=== PATIENT | female | born 1965 | race Caucasian/White ===

== ENCOUNTER 2017-01-15 06:15 | Emergency (ER) | payer OTHER ==
[~2017-01-15] VITALS: Ht 152.4 cm; Wt 59.7 kg
[2017-01-15 06:20] VITALS: Ht 152.4 cm; Wt 59.7 kg
[2017-01-15 06:42] LABS: URINE APPEARANCE TURBID (CLEAR); URINE BILIRUBIN NEG (NEG); URINE COLOR YELLOW; URINE NITRITE NEG (NEG); URINE PH 6.5 (4.5-7.5); URINE SPECIFIC GRAVITY 1.007 (1.000-1.030); UROBILINOGEN NEG (NEG); ZZUR CULT IF INDIC CLEAN CATCH YES
[2017-01-15 06:44] LABS: MANUAL MICROSCOPIC REQUIRED? NO; REVIEW REQ? NO
[2017-01-15] MEDS ORDERED: NITROFURANTOIN MONOHYDRATE 100 MG CAP PO STA (06:58)
[2017-01-15] MEDS ORDERED: NITR-5 PO (07:28)
--- NOTE | 2017-01-15 07:31 | EMERGENCY ROOM VISIT NOTE ---
History Report prepared by Jaquelineibpia: Francois Jimenez Under the Supervision of: Dr. Ashlie Mendenhall M.D. First contact with patient: 06:36 Chief Complaint: URINARY SYMPTOMS Stated Complaint: UTI Nursing Triage Summary: experiencing, frequency, burning and small amounts of hematuria since 299. History of Present Illness The patient is a 51 year old female who presents to the Emergency Room with complaints of persistent urinary symptoms since 0 this morning. The patient' s symptoms include urinary urgency, frequency, dysuria, and hematuria. Her symptoms are consistent with her recurrent UTIs. The patient usually takes Macrobid for her UTIs. Source of History: patient Onset: 299 this morning Position: other (urinary) Quality: other (UTI symptoms) Timing: other (persistent) Associated Symptoms: + urinary symptoms (burning, frequency, urgency, hematuria) Review of Systems See HPI for pertinent positives & negatives. A total of 10 systems reviewed and were otherwise negative. Past Medical & Surgical Medical Problems: (1) Delivery outcome of single liveborn infant Family History No pertinent family history Social History Smoking Status: Never Smoker Occupation Status: employed Current/Historical Medications Scheduled Nitrofurantoin Monohyd Macrocr (Macrobid), 100 MG PO BID Allergies Coded Allergies: Sulfa Drugs (Verified Allergy, 11/20/09) Uncoded Allergies: N (Allergy, Unknown, 11/28/02) NONE (Allergy, Unknown, 11/28/02) SEASONAL (Allergy, Unknown, 11/28/02) SULFA (Allergy, Unknown, 11/28/02) Physical Exam Vital Signs Date Time Temp Pulse Resp B/P Pulse Ox O2 Delivery O2 Flow Rate FiO2 01/15/17 07:47 37.0 82 18 139/87 99 01/15/17 07:04 37.0 92 18 139/87 98 Room Air 01/15/17 06:20 36.4 81 18 138/76 98 Room Air Medical Decision & Procedures Laboratory Results Test 01/15/17 06:25 Urine Color YELLOW Urine Appearance TURBID (CLEAR) Urine pH 6.5 (4.5-7.5) Urine Specific [place] 1.007 (1.000-1.030) Urine Protein NEG (NEG) Urine Glucose (UA) NEG (NEG) Urine Ketones NEG (NEG) Urine Occult Blood 3+ (NEG) Urine Nitrite NEG (NEG) Urine Bilirubin NEG (NEG) Urine Urobilinogen NEG (NEG) Urine Leukocyte Esterase LARGE (NEG) Urine WBC (Auto) >30 /hpf (0-5) Urine RBC (Auto) 10-30 /hpf (0-4) Urine Hyaline Casts (Auto) 1-5 /lpf (0-5) Urine Epithelial Cells (Auto) 10-20 /lpf (0-5) Urine Bacteria (Auto) NEG (NEG) Laboratory results per my review. Medications Administered Medications (Trade) Dose Ordered Sig/Khushboo Route Start Time Stop Time Status Last Admin Dose Admin Nitrofurantoin Macrocrystals (Macrobid Cap) 100 mg NOW STAT PO 01/15/17 06:58 01/15/17 06:59 DC 01/15/17 07:03 100 MG ED Course 0640: The patient was evaluated by my resident. 0658: Macrobid 100 mg PO. 0720: Past medical records reviewed. The patient was evaluated in room B4b. A complete history and physical examination was performed. 0730: The patient understands and agrees with the treatment plan. The patient is ready for discharge. Impression Primary Impression: UTI (urinary tract infection) Scribe Attestation The scribe's documentation has been prepared under my direction and personally reviewed by me in its entirety. I confirm that the note above accurately reflects all work, treatment, procedures, and medical decision making performed by me. Departure Information Dispostion Home / Self-Care Prescriptions Nitrofurantoin Monohyd Macrocr (Macrobid) 100 Mg Cap 100 MG PO BID for UTI for 5 Days, #10 CAP Prov: Bart Bailey MD 01/15/17 Forms HOME CARE DOCUMENTATION FORM, IMPORTANT VISIT INFORMATION Patient Instructions UTI, My [facility] Additional Instructions -If your symptoms worsen or do not improve, or you develop fever >100.4, Abdominal Pain, Flank pain, nausea/vomting, please call your PCP or return to Emergency Dept. -PLease take medication as prescribed -Please follow up with PCP this week Problem Qualifiers Primary Impression: UTI (urinary tract infection) Urinary tract infection type: acute cystitis Hematuria presence: with hematuria Qualified Codes: N30.01 - Acute cystitis with hematuria
--- NOTE | 2017-01-15 07:39 | EMERGENCY ROOM VISIT NOTE ---
History First contact with patient: 06:36 Chief Complaint: URINARY SYMPTOMS Stated Complaint: UTI Nursing Triage Summary: experiencing, frequency, burning and small amounts of hematuria since 0300. History of Present Illness The patient is a 51 year old female with recurrent UTI who presents to the Emergency Room with complaints of Increased urinary urgency, frequency , and dysuria, as of the morning of arrival. Patient took Tylenol at home with minimal relief. She denies Fevers/ chills, N/V Abdominal pain, Back/Flank pain, diarrhea. Patient is allergic to sulfa and reports previously being treated with Macrobid without incident Review of Systems See HPI for pertinent positives & negatives. A total of 10 systems reviewed and were otherwise negative. Past Medical/Surgical History Medical Problems: (1) Delivery outcome of single liveborn infant Social History Smoking Status: Never Smoker Alcohol Use: none Drug Use: none Occupation Status: employed Current/Historical Medications Scheduled Nitrofurantoin Monohyd Macrocr (Macrobid), 100 MG PO BID Allergies Coded Allergies: Sulfa Drugs (Verified Allergy, 11/20/09) Uncoded Allergies: N (Allergy, Unknown, 11/28/02) NONE (Allergy, Unknown, 11/28/02) SEASONAL (Allergy, Unknown, 11/28/02) SULFA (Allergy, Unknown, 11/28/02) Physical Exam Vital Signs Date Time Temp Pulse Resp B/P Pulse Ox O2 Delivery O2 Flow Rate FiO2 01/15/17 07:47 37.0 82 18 139/87 99 01/15/17 07:04 37.0 92 18 139/87 98 Room Air 01/15/17 06:20 36.4 81 18 138/76 98 Room Air Physical Exam GENERAL: alert, well appearing, well nourished, no distress, non-toxic EYE EXAM: normal conjunctiva, PERRL and EOM's grossly intact NECK: supple, no nuchal rigidity, no adenopathy, non-tender LUNGS: Clear to auscultation. Normal chest wall mechanics HEART: no murmurs, S1 normal and S2 normal ABDOMEN: abdomen soft, + Suprapubic tenderness, normo-active bowel sounds, no masses, no rebound or guarding. BACK: Back is symmetrical on inspection and there is no deformity, no midline tenderness, no CVA tenderness. SKIN: no rashes and no bruising UPPER EXTREMITIES: upper extremities are grossly normal. LOWER EXTREMITIES: No pitting edema. Medical Decision & Procedures Laboratory Results Test 01/15/17 06:25 Urine Color YELLOW Urine Appearance TURBID (CLEAR) Urine pH 6.5 (4.5-7.5) Urine Specific [place] 1.007 (1.000-1.030) Urine Protein NEG (NEG) Urine Glucose (UA) NEG (NEG) Urine Ketones NEG (NEG) Urine Occult Blood 3+ (NEG) Urine Nitrite NEG (NEG) Urine Bilirubin NEG (NEG) Urine Urobilinogen NEG (NEG) Urine Leukocyte Esterase LARGE (NEG) Urine WBC (Auto) >30 /hpf (0-5) Urine RBC (Auto) 10-30 /hpf (0-4) Urine Hyaline Casts (Auto) 1-5 /lpf (0-5) Urine Epithelial Cells (Auto) 10-20 /lpf (0-5) Urine Bacteria (Auto) NEG (NEG) Medications Administered Medications (Trade) Dose Ordered Sig/Khushboo Route Start Time Stop Time Status Last Admin Dose Admin Nitrofurantoin Macrocrystals (Macrobid Cap) 100 mg NOW STAT PO 01/15/17 06:58 01/15/17 06:59 DC 01/15/17 07:03 100 MG Medical Decision 51 yo F w/ hx of recurrent UTI p/w Urinary Frequency, Urgency, dysuria as of the morning of arrival Uncomplicated UTI -UA: consistent with UTI: Large Leukocyte Esterase, >30 WBC's, 3+ occult blood -Given one dose of Macrobid 100 mg in ED -Discharged with Macrobid 100mg BID x 5 days with followup to PCP this week Impression Primary Impression: UTI (urinary tract infection) Departure Information Dispostion Home / Self-Care Prescriptions Nitrofurantoin Monohyd Macrocr (Macrobid) 100 Mg Cap 100 MG PO BID for UTI for 5 Days, #10 CAP Prov: Bart Bailey MD 01/15/17 Forms HOME CARE DOCUMENTATION FORM, IMPORTANT VISIT INFORMATION Patient Instructions UTI, My [employer] Additional Instructions -If your symptoms worsen or do not improve, or you develop fever >100.4, Abdominal Pain, Flank pain, nausea/vomting, please call your PCP or return to Emergency Dept. -PLease take medication as prescribed -Please follow up with PCP this week Resident Tracking Resident Involvement: Resident Care Provided Care Provided: Adult ED Problem Qualifiers Primary Impression: UTI (urinary tract infection) Urinary tract infection type: acute cystitis Hematuria presence: with hematuria Qualified Codes: N30.01 - Acute cystitis with hematuria
[2017-01-15 07:47] VITALS: BP 139/87; PULSE 82; TEMP 37; O2SAT 99
--- NOTE | 2017-01-15 11:03 | EMERGENCY ROOM VISIT NOTE ---
ED Visit Note First contact with patient: 06:36 Resident Physician Supervision Note: I interviewed and examined the patient. Discussed with Dr. Rogers and agree with findings and plan as documented in the note. Any exceptions or clarifications are listed here: [None] Dx: UTI Documented By: Ashlie Mendenhall
== END 2017-01-15 07:20 | disposition home or self-care (01) ==
LOC: C.EDB 06:15
DX: N30.01 Acute cystitis with hematuria (principal)

== ENCOUNTER → 2017-03-07 | Outpatient (CLI) | payer OTHER ==
--- NOTE | 2017-03-07 10:13 | DIAGNOSTIC IMAGING REPORT ---
ULTRASOUND KIDNEYS AND BLADDER CLINICAL HISTORY: Pelvic/bladder pain. COMPARISON STUDY: No priors. TECHNIQUE: Real-time, grayscale, and color flow sonography of the kidneys and bladder is performed. Images are reviewed in the transverse and longitudinal planes. FINDINGS: Kidneys: The kidneys are normal in size and echotexture. The right kidney measures 11.1 x 3.4 x 4.7 cm and the left kidney measures 10.5 x 4.4 x 4.5 cm. There is no hydronephrosis. No shadowing renal calculi are identified. There is no sonographic evidence of contour deforming renal mass lesion. No perinephric fluid is identified. Bladder: The bladder is normal in appearance. Bilateral ureteral jets were seen. IMPRESSION: Unremarkable sonographic assessment of the kidneys and bladder. Electronically signed by: Tim Altamirano M.D. 03/07/2017 10:11 AM Dictated Date/Time: 03/07/2017 10:11 AM
== END | disposition home or self-care (01) ==
LOC: C.ULTR 09:37
PROVIDERS: ATTEND Urology
DX: R39.89 Other symptoms and signs involving the genitourinary system (principal)

== ENCOUNTER → 2017-03-31 | Outpatient (CLI) | payer OTHER | END | disposition home or self-care (01) | LOC: C.PAPS 14:29 | PROVIDERS: ATTEND Obstetrics & Gynecology | DX: Z12.4 Encounter for screening for malignant neoplasm of cervix (principal) ==

== ENCOUNTER → 2017-07-12 | Outpatient (CLI) | payer OTHER ==
--- NOTE | 2017-07-12 15:29 | MAMMOGRAPHY REPORT ---
BILATERAL DIGITAL SCREENING MAMMOGRAM TOMOSYNTHESIS WITH CAD: 07/12/2017 CLINICAL HISTORY: Routine screening. Patient has no complaints. TECHNIQUE: Breast tomosynthesis in addition to standard 2D mammography was performed. Current study was also evaluated with a Computer Aided Detection (CAD) system. COMPARISON: Comparison is made to exams dated: 02/05/2014 mammogram, 01/31/2013 mammogram, 01/31/2012 m ammogram, 01/27/2011 mammogram, 02/01/2010 mammogram, and 01/26/2010 mammogram - [facility] enter. BREAST COMPOSITION: There are scattered areas of fibroglandular density in both breasts. FINDINGS: There is a stable intramammary lymph node in the upper outer posterior right breast, uncha nged dating back to at least 2008, therefore likely benign. No new suspicious mass, architectural di stortion or cluster of microcalcifications is seen. IMPRESSION: ACR BI-RADS CATEGORY 1: NEGATIVE There is no mammographic evidence of malignancy. A 1 year screening mammogram is recommended. The pa tient will receive written notification of the results. Approximately 10% of breast cancers are not detected with mammography. A negative mammographic report should not delay biopsy if a clinically suggestive mass is present. Marifer Anderson M.D. ay/:07/12/2017 12:37:17 Receiving Tank Operator: Michelle MCKEON)(M), [facility] letter sent: Normal 1/2 BI-RADS Code: ACR BI-RADS Category 1: Negative
== END | disposition home or self-care (01) ==
LOC: C.MAMM 10:59
PROVIDERS: ATTEND Obstetrics & Gynecology
DX: Z12.31 Encounter for screening mammogram for malignant neoplasm of breast (principal)